=== PATIENT | male | born 1960 | race Asian ===

== ENCOUNTER 2020-09-03 10:44 | Emergency (ER) | payer MEDICAID ==
[~2020-09-03] VITALS: Ht 160 cm; Wt 70.5 kg
[2020-09-03 10:54] VITALS: BP 148/86
[2020-09-03] MEDS ORDERED: LOSA25TA21 PO (10:55)
[2020-09-03] MEDS ORDERED: ATOR10TA84 PO (10:55)
== END 2020-09-03 12:37 | disposition left against medical advice (07) ==
LOC: EMS 11:09
DX: I10 Essential (primary) hypertension (principal); Z53.21 Procedure and treatment not carried out due to patient leaving prior to being seen by health care provider